=== PATIENT | male | born 1945 | race Caucasian/White ===

== ENCOUNTER 2018-04-27 07:29 | Day surgery (SDC) | payer MEDICARE, BC ==
[2018-04-27] MEDS ORDERED: ACETAZOLAMIDE 250 MG PO ONE (07:32)
[2018-04-27] MEDS: CYCLOPENTOLATE 1% SOL ONE ×2 (07:53→08:10)
[2018-04-27] MEDS: TETRACAINE HCL 0.5 % 1 DROP SOL ONE ×3 (07:53→08:55)
[2018-04-27] MEDS: PHENYLEPHRINE HCL 10% OPHTHAL SOL ONE ×2 (07:53→08:10)
[2018-04-27] MEDS: KETOROLAC 0.5% OPTH 60 DROP SOL ONE ×2 (07:54→08:11)
[2018-04-27] MEDS ORDERED: MIDAZOLAM 2 MG/2 ML SOL ONE (08:37)
[2018-04-27] MEDS ORDERED: FENTANYL 100MCG/2ML SOL ONE (08:37)
[2018-04-27] MEDS ORDERED: ONDANSETRON HCL 4 MG/2 ML SOL ONE (08:37)
[2018-04-27] MEDS ORDERED: IMPRIMIS ONE (08:51)
[2018-04-27] MEDS ORDERED: BSS 500 ML 500 ML IR ONE (08:52)
[2018-04-27] MEDS ORDERED: LIDOCAINE HCL 1% MPF 30 SOL ONE (08:52)
[2018-04-27] MEDS ORDERED: POVIDONE IODINE 5% SOL ONE (08:52)
[2018-04-27 09:29] VITALS: BP 134/72; PULSE 62; RESP 18; TEMP 97.5; O2SAT 97
== END 2018-04-27 09:40 | disposition home or self-care (01) | DRG 125 ==
LOC: SURG 07:29
PROVIDERS: ATTEND Ophthalmology
DX: H25.89 Other age-related cataract (principal)
CPT/HCPCS: J2250; J2405; J3010; A9270-GY; J2001